=== PATIENT | male | born 1960 | race Caucasian/White ===

== ENCOUNTER → 2016-10-20 | Day surgery (SDC) | payer OTHER ==
[2016-10-01 15:35] VITALS: Ht 179.1 cm; Wt 95.5 kg
[~2016-10-20] VITALS: Ht 179.1 cm; Wt 95.5 kg
[~2016-10-20] MED LIST: ATOR10TA82 PO; ATROPINE SULFATE 0.1 MG/ML 5ML SYR IV PRN; BUPIVACAINE/EPINEPHRINE 0.5% MPF 1:200,000 30 ML VIAL ONE; CEFAZOLIN 2000 MG/60 ML D5W 60 ML IV SCH; CEFAZOLIN SOD 1 GM VIAL ONE; CEFAZOLIN SOD 1000MG/55 ML D5W IV ONE; DEXAMETHASONE SOD INJ 4 MG/ML VIAL ONE; EpHEDrine SULFATE INJ 50 MG/ML AMP IV PRN; FENTANYL CITRATE INJ 50 MCG/1 ML 2 ML VIAL ONE; GLYCOPYRROLATE INJ 0.2 MG/ML VIAL ONE; HYDROmorphone INJ 2 MG/ML SYR/VIAL IV PRN; KETO10TA PO; KETOROLAC TROMETHAMINE 30 MG/ML VIAL ONE; LACTATED RINGER'S 1000ML 1,000 ML IV SCH; LEVO100T7 PO; LIDOCAINE HCL 2% 2 ML VIAL (20MG/ML) ONE; MIDAZOLAM HCL 1 MG/ML 2ML VIAL ONE; ONDANSETRON INJ 2 MG/ML 2 ML VIAL IV PRN; ONDANSETRON INJ 2 MG/ML 2 ML VIAL ONE; OXYC-57 PO; OXYCODONE/ACETAMINOPHEN 5-325 TAB PO PRN; PHENYLEPHRINE 100MCG/ML 5ML SYR IV PRN; PROPOFOL IV EMULSION 10 MG/ML 20 ML VIAL IV ONE; SCOPOLAMINE 1.5 MG TDSY TD ONE; SODIUM CHLORIDE 0.9% 1000ML 1,000 ML IV SCH; SUCCINYLCHOLINE CHLORIDE 20 MG/ML 10 ML VIAL IV ONE
--- NOTE | 2016-10-20 06:56 | History & Physical Bridge - [place] ---
H&P Re-Evaluation Bridge Note: I have examined the patient, reviewed the History & Physical and in the interval since the performance of the History & Physical I have noted the following changes of clinical significance: No changes noted
--- NOTE | 2016-10-20 08:03 | [facility] Post Operative Brief Note ---
Immediate Operative Summary Operative Date October 20, 2016. Pre-Operative Diagnosis Right Foot qst MTP Joint Osteoarthritis Post-Operative Diagnosis same Procedure(s) Performed Right First Metatarsalphalangeal Joint Cheilectomy Surgeon Dr. Lupe Dooley Screen Cleaner Surgeon(s) Kadeem Stallings PA-C Estimated Blood Loss 10CC Findings Right First MTP Joint DJD Specimens NONE Drains None Anesthesia General Complication(s) None Disposition Recovery Room / PACU
--- NOTE | 2016-10-20 08:06 | Discharge Instructions-SurgCtr ---
Discharge Instructions Date of Service October 20, 2016. Visit Reason for Visit: Right Foot Joint Osteoarthritis Discharge Discharge Diagnosis / Problem: RIGHT 1ST MTP JOINT ARTHRITIS, HALLUX RIGIDUS Discharge Goals Goal(s): Decrease discomfort, Therapeutic intervention Activity Recommendations Activity Limitations: per Instructions/Follow-up section Weightbearing Status: Right weightbearing (as tolerated) Anesthesia . Post Anesthesia Instructions: If you have had General Anesthesia or IV Sedation: * Do not drive today. * Resume driving when surgeon permits. * Do not make important decisions or sign legal documents today. * Call surgeon for: 1. Temperature elevations greater than 101 degrees F. 2. Uncontrollable pain. 3. Excessive bleeding. 4. Persistent nausea and vomiting. 5. Medication intolerance (nausea, vomiting or rash). * For nausea and vomiting use only clear liquids such as: tea, soda, bouillon until nausea subsides, then gradually increase diet as tolerated. * If you have any concerns or questions, call your surgeon's office. If physician is unavailable and it is an emergency, call 911 or go to the nearest emergency room. . Instructions / Follow-Up Instructions / Follow-Up MEDICATIONS: * Resume previous medications unless instructed otherwise by your surgeon. * Always take pain medication on a full stomach or with food to avoid upset stomach. * Do not drink alcohol or drive while taking narcotics. * Ibuprofen or Tylenol may be taken if narcotic not needed. NO IBUPROFEN WHILE TAKING TORADOL SPECIAL CARE INSTRUCTIONS: __ None _X_ Keep extremity elevated and iced x 48 hours; apply ice 20-30 minutes 8-10 times/day. May remove at night. ELEVATE MUCH POSSIBLE __ Crutches __ May discard when able _X_ Brace/Post-op shoe FOR WEIGHT BEARING __ 24 hrs/day __ Remove at night _X_ Dressing _X_ Maintain until seen in office, may shower with plastic over site __ Remove dressings in 24-48 hours and then may shower __ Cover incisions with band-aids after showering __ Do not remove steri-strips Call physician if chills or temperature rises above 102 degrees or pain unrelieved by prescribed pain medications. Office [phone] FOLLOW UP IN 2 WEEKS Diet Recommendations Home Diet: resume previous diet Procedures Procedures Performed: Right First Metatarsalphalangeal Joint Cheilectomy Pending Studies Studies pending at discharge: no Medical Emergencies . Who to Call and When: Medical Emergencies: If at any time you feel your situation is an emergency, please call 911 immediately. . Non-Emergent Contact Non-Emergency issues call your: Surgeon . . "Provider Documentation" section prepared by Lee Stallings. .
[2016-10-20 09:07] VITALS: TEMP 36.1
--- NOTE | 2016-10-20 09:15 | Anesthesia Progress Nt - [facility] ---
Anesthesia Post Op Note Date & Time October 20, 2016 at 09:15 Vital Signs Pain Intensity: 0 Vital Signs Past 12 Hours Date Time Temp Pulse Resp B/P Pulse Ox O2 Delivery O2 Flow Rate FiO2 10/20/16 08:59 36.4 58 12 119/70 99 Room Air 10/20/16 08:57 64 9 94 10/20/16 08:57 64 9 10/20/16 08:56 119/70 10/20/16 08:52 58 7 10/20/16 08:52 58 7 105/66 98 10/20/16 08:47 66 10 90 10/20/16 08:47 66 10 10/20/16 08:46 95/60 10/20/16 08:42 73 13 95 10/20/16 08:42 72 13 10/20/16 08:41 115/57 10/20/16 08:37 68 12 100 10/20/16 08:37 69 12 10/20/16 08:36 119/78 10/20/16 08:32 69 10 10/20/16 08:32 68 10 100 10/20/16 08:31 118/72 10/20/16 08:27 66 10 10/20/16 08:27 67 10 100 10/20/16 08:26 112/68 10/20/16 08:22 71 16 100 10/20/16 08:22 71 16 10/20/16 08:21 109/70 10/20/16 08:17 69 12 10/20/16 08:17 69 12 100 10/20/16 08:16 119/73 10/20/16 08:12 69 6 99 10/20/16 08:12 69 6 10/20/16 08:11 120/67 10/20/16 08:07 73 0 98 10/20/16 08:07 73 0 10/20/16 08:06 101/70 10/20/16 08:03 122/63 10/20/16 08:02 77 10/20/16 08:02 36.9 78 20 122/63 98 Mask 6 10/20/16 08:02 77 98 10/20/16 06:24 36.3 45 16 121/57 97 Room Air Notes Mental Status: alert / awake / arousable, participated in evaluation Pt Amnestic to Procedure: Yes Nausea / Vomiting: adequately controlled Pain: adequately controlled Airway Patency, RR, SpO2: stable & adequate BP & HR: stable & adequate Hydration State: stable & adequate Anesthetic Complications: no major complications apparent
[2016-10-20 09:36] VITALS: BP 132/86; PULSE 56; O2SAT 98
--- NOTE | 2016-10-21 05:53 | OPERATIVE REPORT ---
DATE OF OPERATION: 10/20/2016 SURGEON: Nick Dooley MD CREDIT RELATIONSHIP MANAGER: ESTER Cunningham PREOPERATIVE DIAGNOSIS: Right first MTP joint hallux rigidus/degenerative joint disease. POSTOPERATIVE DIAGNOSIS: Same. PROCEDURE PERFORMED: Right first MTP joint cheilectomy. COMPLICATIONS: None. ESTIMATED BLOOD LOSS: Minimal. TOURNIQUET TIME: 27 minutes at 300 mmHg. ANESTHESIA: General. SPECIMENS: None. OPERATIVE INDICATIONS: The patient is a 56-year-old very active gentleman who had a long history of right foot pain. 4 years ago, he underwent a cheilectomy to the left first MTP joint and has done well from this. He has continued to have persistent progressive pain in the right first MTP joint with pretty significant stiffness. The joint space was reasonably well maintained on x-ray. He elected to proceed with first MTP joint cheilectomy. OPERATIVE PROCEDURE: The patient was taken to the operating room, identified and placed on the operating table in supine position. All contact areas were appropriately padded. IV antibiotics were provided by anesthesia team. A general anesthetic was implemented by anesthesia team. Right ankle tourniquet was placed. The right ankle was then prepped and draped in the usual sterile fashion. The right leg was elevated and exsanguinated with Esmarch and tourniquet was placed at 300 mmHg. A dorsal medial incision was made over the first MTP joint on the medial side of the EHL tendon. Blunt dissection was carried out through the subcutaneous tissues down to the joint capsule. The joint capsule was incised about 4-5 mm medial to the EHL tendon. It was sharply dissected off the first MTP joint including the base of the proximal phalanx and the metatarsal head. There was a large loose body on the dorsal aspect of the IP joint and this was removed. I then used a saw to resect the dorsal osteophyte. I then used a saw to resect both the medial and lateral osteophytes. I then used a rongeur to remove the osteophytes off the base of the proximal phalanx. I freed up the soft tissue in this area, so that I could easily dorsiflex the foot to the great toe to at least 70 degrees of dorsiflexion. I irrigated the wound extensively. I then placed some bone wax on the cancellous bone surfaces. I then injected locally with about 30 mL of 0.5% Marcaine with epinephrine. I then closed the joint capsule with 3-0 Vicryl suture in a [id number] fashion. The tourniquet was then let down for a tourniquet time of 27 minutes. Hemostasis was assured with use of electrocautery. The skin was then closed with 4-0 nylon suture in a horizontal mattress fashion. The patella was then cleaned and dried and a sterile dressing composed of Xeroform, 4 x 4s, Trevor wrap followed by sterile cast padding and Coban tape a postop shoe was applied. The patient then brought out of general anesthesia and transferred to the recovery room in stable condition. The patient tolerated the procedure well with no complications. All needle and sponge counts were correct at the end of the operation. I attest to the content of the Intraoperative Record and any orders documented therein. Any exceptio ns are noted below.
== END | disposition home or self-care (01) ==
LOC: X.SURG 06:09
PROVIDERS: ATTEND Orthopaedic Surgery Sports Medicine
DX: M20.21 Hallux rigidus, right foot (principal); M19.071 Primary osteoarthritis, right ankle and foot; E03.9 Hypothyroidism, unspecified; E78.5 Hyperlipidemia, unspecified; Z68.30 Body mass index [BMI] 30.0-30.9, adult; Z79.899 Other long term (current) drug therapy; Z98.890 Other specified postprocedural states